=== PATIENT | female | born 1955 | race Caucasian/White ===

== ENCOUNTER 2017-05-16 15:58 | Inpatient (IN) | payer MEDICARE ==
[~2017-05-16] VITALS: Ht 165.1 cm; Wt 90.6 kg
--- NOTE | ~2017-05-16 | CT4 ---
[facility] A Service of [facility] / [facility] RADIOLOGY TEXT RESULTS PATIENT: KEN CHARLTON LOCATION: [facility] 340-01 : [birth year] UNIT #: [id number] AGE: [address]: Collette Cooper MD SEX: F ORDER DR: [id number] [facility] [address] [place], [place] [address] [id number] I MR#: [id number] Acc #: [id number] NAME: KEN CHARLTON : 1955 SEX: F STUDY DATE/TIME: 05/16/2017 17:11 UNIT: CEDOF ROOM: 88909 STUDY DESCRIPTION: CT Abd and Pelv Wo Cont Attending Physician: Shamir Michael M.D. Ordering Physician: Jesus Moore D.O. Primary Care Physician: Ivania Ford M.D. MEDICAL IMAGING REPORT This report is preliminary unless electronic signature is present EXAM CT abdomen and pelvis without contrast. HISTORY Right flank pain for [address] exam was performed with one or more of the following radiation dose reduction techniques: automatic exposure control, adjustment of mA and/or kV according to patient size, and iterative reconstruction. FINDINGS CT abdomen and pelvis was performed without contrast. CT ABDOMEN: No renal calculi. No hydronephrosis or perinephric stranding. Mildly prominent right extrarenal pelvis is incidentally noted. Cholecystectomy. Hiatal hernia repair. No hepatic mass. No biliary dilatation. The spleen, pancreas, and adrenal glands are normal. Normal caliber abdominal aorta. CT PELVIS: No bladder calculi. Normal appendix. Hysterectomy. No free fluid. No bowel dilatation. IMPRESSION 1. No acute findings in the abdomen or pelvis. 2. No urinary calculi or obstruction. 3. Postoperative changes include hiatal hernia repair, cholecystectomy and hysterectomy. Dictated by... Clyde Griffiths M.D. [facility] A Service of [facility] / [facility] RADIOLOGY TEXT RESULTS PATIENT: KEN CHARLTON LOCATION: [facility] 340-01 : 57 UNIT #: [id number] AGE: [address]: Collette Cooper MD SEX: F ORDER DR: THIS IS AN ELECTRONICALLY VERIFIED REPORT Clyde Griffiths M.D. at 05/17/2017 6:07 PM BARRY/natalio TD: 05/16/2017 23:30 JOB #: [id number] MEDICAL IMAGING REPORT Page 1 of 1 COPY
--- NOTE | ~2017-05-16 | CR63 ---
[facility] A Service of [facility] / [facility] RADIOLOGY TEXT RESULTS PATIENT: KEN CHARLTON LOCATION: [facility] 340-01 : [birth year] UNIT #: [id number] AGE: [address]: Collette Cooper MD SEX: F ORDER DR: [id number] [facility] [address] [place], [place] [address] [id number] I MR#: [id number] Acc #: [id number] NAME: KEN CHARLTON : 1955 SEX: F STUDY DATE/TIME: 05/17/2017 10:55 [facility]: [facility] STUDY DESCRIPTION: CR Chest 2 View Attending Physician: Collette Cooper M.D. Ordering Physician: Collette Cooper M.D. Primary Care Physician: Ivania Ford M.D. MEDICAL IMAGING REPORT This report is preliminary unless electronic signature is present EXAM 2 views of the chest COMPARISON Abdominal series dated August 18, 2012. HISTORY 61-year-old female with dyspnea and cough for 1 day. History of hypertension and COPD. FINDINGS/IMPRESSION There is no pleural effusion or focal airspace disease. No evidence of pneumothorax. The cardiomediastinal silhouette is within normal limits for low lung volumes. There are bilateral calcified mediastinal lymph nodes. Prior cholecystectomy. No acute radiographic abnormality in the chest. Normal heart size. Dictated by... Yonny Parker M.D. THIS IS AN ELECTRONICALLY VERIFIED REPORT Yonny Parker M.D. at 05/23/2017 9:14 PM BLM/pcl TD: 05/17/2017 15:29 JOB #: [id number] MEDICAL IMAGING REPORT Page 1 of 1 COPY
--- NOTE | ~2017-05-16 | DS ---
Unit #: [id number] #: [id number] Patient: KEN CHARLTON [id number] [address] [address] [id number] I MR#: [id number] NAME: KEN CHARLTON ROOM: 340 Age: 61 Sex: F Admission Date: 05/16/2017 : 1955 Discharge Date: Attending Physician: Collette Cooper M.D. Primary Care Physician: Ivania Ford M.D. DISCHARGE SUMMARY DISCHARGE DIAGNOSES 1. Acute pancreatitis. 2. Urinary tract infection. 3. History of pancreatitis, now recurrent. 4. History of anxiety. 5. Depression. 6. Posttraumatic stress disorder. 7. Hypertension. 8. History of chronic obstructive pulmonary disease. 9. Asthma. 10. Mediastinal lymph node on chest x-ray; needs outpatient followup. 11. History of parathyroid adenoma. 12. Osteoporosis. 13. Kidney stones. CONSULTATIONS None. PROCEDURES None. DIAGNOSTIC TESTING LAB DATA: Sodium 141, potassium 3.8, lipase 17. Liver enzymes normal. WBC 7.3, hemoglobin 14. Urine culture growing mixed growth. IMAGING: CT of the abdomen and pelvis - No acute findings. Chest x-ray, 2 views, shows mediastinal lymph nodes. ALLERGIES Iodine, banana, latex. DISCHARGE MEDICATIONS 1. ProAir 2 puffs inhalation q.4 p.r.n. shortness of breath. 2. Tylenol 1,000 mg p.o. q.4-6 p.r.n. pain. 3. Lexapro 20 daily. 4. Trazodone 200 at bedtime. 5. Zofran 4 mg p.o. q.4 p.r.n. nausea and vomiting. 6. Norvasc 5 mg p.o. daily. 7. Calcium with vitamin D 500 mg p.o. daily. HOSPITALIZATION COURSE A 61 year old admitted because of abdominal pain. Unit #: [id number] #: [id number] Patient: KEN CHARLTON Acute pancreatitis, recurrent, with history of previous pancreatitis. Etiology unclear. CAT scan negative. She was kept on clear liquid diet and IV fluids. Currently wants to eat. Patient will be started on low-fat diet. If tolerates, the patient will be discharged home. I would recommend her to follow with Dr. Hima Robin, gastroenterology, in 2 weeks' time for recurrent pancreatitis as outpatient followup. Urinary tract infection. Patient received IV antibiotics. Culture shows mixed growth. No antibiotics needed at home. Mediastinal lymph node. The patient had lymph nodes on chest x-ray done because of COPD and cough. I would recommend her to follow with her PCP for further followup and evaluation and treatment, likely with a CT. Patient understands the instructions, and she understands that she needs to follow with the PCP for the chest lymph nodes. Mostly they are reactive. DISCHARGE PLAN 1. Discharge home. 2. Follow with family physician in 1-2 weeks' time. Dictated by... Saurabh Mendoza/elijah TD: 05/18/2017 15:46 JOB #: [id number] DISCHARGE SUMMARY Page 1 of 1 X Collette Cooper MD X DISCHARGE SUMMARY
--- NOTE | ~2017-05-16 | A ---
[facility] Nutrition Therapy DATE: 05/18/17 Patient: KEN CHARLTON Physician: FLORY Address: [address] [place] [address] Room/Bed: [address] [place] [address], Zip: [place] [address] Admit Date: 05/16/17 Date of : [birth year] Height: 5 5 Weight: 199 90.6 NUTRITIONAL ASSESSMENT: REASON: Consult re: pancreatitis diet education 61 y/o female admitted for pancreatitis PMH: anxiety/depression, HTN, osteoporosis, pancreatitis, asthma, COPD, DM, diveticulitis Anthropometrics: ht: 5'5" wt: 199# (90 kg) BMI 33 Assessment: Chart reviewed, events noted. Pt seen for consult re: pancreatitis diet education. RD internal communications writer visited pt at bedside and provided written and verbal pancreatitis diet education, providing patient with several examples of low-fat foods for patient. RD internal communications writer addressed several questions from pt and will remain available if further questions arise. Intervention: 1. Diet education 2. Full liquid diet RECOMMENDATIONS: 1. Advance diet as tolerated to low-fat. Encourage compliance of diet order. 2. Re-consult RD if further diet education requested/needed RD will f/u per protocol. Respectfully, SHARON HERNANDEZ, public relations intern Chata Ricci MS, RD, LD [facility] cc: client file
--- NOTE | ~2017-05-16 | HP ---
Unit #: [id number] #: [id number] Patient: KEN CHARLTON [id number] [address] [address] [id number] I MR#: [id number] NAME: KEN CHARLTON ROOM: 340 Age: 61 Sex: F Admission Date: 05/16/2017 : 1955 Attending Physician: Collette Cooper M.D. Primary Care Physician: Ivania Ford M.D. HISTORY AND PHYSICAL CHIEF COMPLAINT Right flank pain radiate to back with nausea, cloudy urine. DISCUSSION This is a 61-year-old female, with history of pancreatitis, anxiety/depression, posttraumatic stress disorder, hypertension, chronic obstructive pulmonary disease, asthma, history of parathyroid, adenoma, osteoporosis. She presented to the emergency room with chief complaint of having right flank pain, radiate to back, she thought she has a kidney stone which is possibly passing out, she has a CT scan of the abdomen which was negative for kidney stone but on workup she was found to be lipase 183 and urine consideration for urinary tract infection, being admitted for urinary tract infection and pancreatitis. She said she has history of frequent kidney stones and paranoid adenoma. She is under process for getting surgery for parathyroid adenoma. She is going to be admitted for pancreatitis. She says she has nausea and right flank pain radiating to back, and dysuria, and similarly urine cloudy urine, and she has some cough at nighttime, diarrhea for the last three days. Denied chest pain or any other complaint. PAST MEDICAL HISTORY 1. History of anxiety/depression/posttraumatic stress disorder. 2. Hypertension. 3. History of asthma/chronic obstructive pulmonary disease. 4. History of parathyroid adenoma. 5. Osteoporosis. 6. History of pancreatitis. 7. History of kidney stones. SOCIAL HISTORY She said she quit smoking ten years ago. She used to smoke two and a half packs daily for twelve years, she says she drinks alcohol once in a blue gavin. FAMILY HISTORY Hypertension and diabetes in the family. PAST SURGICAL HISTORY 1. History of hiatal hernia repair. 2. D and C. 3. Tubal ligation. 4. Oral surgery. 5. Total hysterectomy. 6. Cholecystectomy. Unit #: [id number] #: [id number] Patient: KEN CHARLTON 7. Right wrist surgery x2. HOME MEDICATIONS Medications from home is the followin. Lexapro 20 mg daily 2. Desyrel 200 mg at bedtime 3. Amlodipine 5 mg daily 4. ProAir inhaler p.r.n. 5. Calcium with vitamin D one tablet daily REVIEW OF SYSTEMS All review of systems negative except as in history of present illness. PHYSICAL EXAMINATION GENERAL: Middle-aged female lying in the bed comfortably, currently not in any distress. She is alert, awake, and oriented x3, comfortable, not in any distress. VITAL SIGNS: Current vitals are the following, temperature 98.2, heart rate 95, respiratory rate is 18, blood pressure 176/99. HEENT EXAMINATION: Pupils equal reactive to light and accommodation. Head: Normocephalic and atraumatic. NECK: Supple. No jugular venous distention. No thyromegaly. LUNGS: Clear to auscultation bilaterally. No rhonchi. No wheezing. HEART: S1 and S2, regular rate and rhythm. ABDOMEN: Soft, nontender, and nondistended. No guarding. No rigidity. Bowel sounds are positive. EXTREMITIES: Inspection normal. No cyanosis, no clubbing, and no edema. NEUROLOGIC: She is alert and oriented x4. Cranial nerves II through XII intact grossly normal sensory and no focal neurologic deficit, power 5/5 on both sides. PSYCH: Normal mood and affect. DIAGNOSTIC STUDIES LABORATORY: Laboratory workup is following, sodium 136, potassium 3.6, chloride 105, glucose 76, BUN 11, creatinine 0.7, lipase 183. Urinalysis positive, WBC 10-25, white count 9, hemoglobin 13, hematocrit 41, platelets 220. ASSESSMENT/PLAN 1. Acute pancreatitis, start the patient on IV fluids and pain control with morphine and Zofran. 2. Urinary tract infection, start on IV Levaquin, followup urine culture. 3. History of pancreatitis. 4. History of anxiety/depression/posttraumatic stress disorder. 5. Hypertension. 6. History of asthma, chronic obstructive pulmonary disease. 7. History of parathyroid adenoma. 8. History of osteoporosis. 9. History of kidney stones. 10. DVT prophylaxis. Will place the patient on Lovenox. Dictated by Shamir Michael M.D. Unit #: [id number] #: [id number] Patient: KEN CHARLTON/winnie TD: 05/17/2017 11:46 JOB #: [id number] HISTORY AND PHYSICAL Page 1 of 1 X X HISTORY AND PHYSICAL
[~2017-05-16 15:58] MED LIST: DICLOFENAC PO; FLEXERIL10 MG PO; HYDROCODONE/APA1 T15 PO; ZOFRAN PO
[2017-05-16 16:54] LABS: URINE SOURCE CLEAN CATCH
[2017-05-16 17:03] LABS: BASOPHIL# 0.1 X10e3 (0-0.3); BASOPHIL% 0.9 % (0-2.5); EOSINOPHIL# 0.2 X10e3 (0-0.7); EOSINOPHIL% 1.6 % (0.0-7.0); HEMATOCRIT 41.6 % (35.0-45.0); HEMOGLOBIN 13.6 gm/dL (12.0-16.0); LYMPHOCYTE# 3.1 X10e3 (1.0-3.5); LYMPHOCYTE% 33.4 % (17.0-45.0); MEAN CELL VOLUME 87.4 FL (83-96); MEAN CORPUSCULAR HEMOGLOBIN 28.5 PG (28-34); MEAN CORPUSCULAR HGB CONC 32.6 g/dL (30-36); MEAN PLATELET VOLUME 8.8 FL (6.5-11.5); MONOCYTE# 0.8 X10e3 (0-1.0); MONOCYTE% 8.8 % (3.0-12.0); NEUTROPHIL# 5.2 X10e3 (1.5-7.1); NEUTROPHIL% 55.3 % (40-75); PLATELET COUNT 220 X10e3 (140-420); RED BLOOD COUNT 4.76 X10e (3.90-5.30); RED CELL DISTRIBUTION WIDTH 13.4 % (11.0-15.5); URINE APPEARANCE CLEAR; URINE BILIRUBIN NEG (NEG); URINE BLOOD 3+ (NEG); URINE COLOR YELLOW; URINE GLUCOSE NEG (NEG); URINE KETONE NEG (NEG); URINE LEUKOCYTE ESTERASE 1+ (NEG); URINE NITRATE NEG (NEG); URINE PH 5.5 (5-8); URINE PROTEIN 2+ (NEG); URINE SPECIFIC GRAVITY 1.009 (1.003-1.035); URINE UROBILINOGEN 0.2 MG/DL (NEG); WHITE BLOOD COUNT 9.4 X10e3 (4.0-10.5)
[2017-05-16 17:07] LABS: CULTURE INDICATED? YES; DIFF IND NO; URBCS1 AUWI 25-50 /[HPF] (0-2); URINE BACTERIA AUWI NEG (NEGATIVE); URINE SQUAMOUS EPITHELIAL CELL OCC /[HPF]
[2017-05-16 17:20] LABS: ALBUMIN SERUM 4.1 g/dL (3.5-5.0); BILIRUBIN, DIRECT 0.1 mg/dL (0.0-0.2); BILIRUBIN,INDIRECT 0.4 mg/dL (0.0-0.9); BILIRUBIN,TOTAL 0.5 mg/dL (0.2-2.0); BUN/CREATININE RATIO 15.71; CREATININE SERUM 0.7 mg/dL (0.6-1.4); GLOM FILT RATE Estimated 94.2 mL/min (>60); POTASSIUM 3.6 mmol/L (3.5-5.1); PROTEIN TOTAL SERUM 7.3 g/dL (6.0-8.3)
[2017-05-16] MEDS ORDERED: LEXAPRO20 MG PO (20:08)
[2017-05-16] MEDS ORDERED: DESYREL100 MG PO (20:10)
[2017-05-16] MEDS ORDERED: AMLODIPINE BESYL5 MG PO (20:10)
[2017-05-16] MEDS ORDERED: PROAIR RESPICL90 MCG INH (20:11)
[2017-05-16] MEDS ORDERED: CALCIUM 600 +1 EAC7 PO (20:26)
[2017-05-17 07:31] LABS: BASOPHIL# 0.1 X10e3 (0-0.3); BASOPHIL% 1.3 % (0-2.5); EOSINOPHIL# 0.2 X10e3 (0-0.7); EOSINOPHIL% 4.5 % (0.0-7.0); HEMATOCRIT 39.9 % (35.0-45.0); HEMOGLOBIN 12.9 gm/dL (12.0-16.0); LYMPHOCYTE# 2.2 X10e3 (1.0-3.5); LYMPHOCYTE% 46.3 % (17.0-45.0); MEAN CELL VOLUME 87.6 FL (83-96); MEAN CORPUSCULAR HEMOGLOBIN 28.4 PG (28-34); MEAN CORPUSCULAR HGB CONC 32.4 g/dL (30-36); MEAN PLATELET VOLUME 9.1 FL (6.5-11.5); MONOCYTE# 0.5 X10e3 (0-1.0); MONOCYTE% 10.8 % (3.0-12.0); NEUTROPHIL# 1.7 X10e3 (1.5-7.1); NEUTROPHIL% 37.1 % (40-75); PLATELET COUNT 192 X10e3 (140-420); RED BLOOD COUNT 4.55 X10e (3.90-5.30); RED CELL DISTRIBUTION WIDTH 13.2 % (11.0-15.5); WHITE BLOOD COUNT 4.7 X10e3 (4.0-10.5)
[2017-05-17 07:37] LABS: DIFF IND NO
[2017-05-17 08:12] LABS: ALBUMIN SERUM 3.4 g/dL (3.5-5.0); BILIRUBIN,TOTAL 0.6 mg/dL (0.2-2.0); CALCIUM SERUM 8.7 mg/dL (8.4-10.2); CREATININE SERUM 0.8 mg/dL (0.6-1.4); GLOM FILT RATE Estimated 80.2 mL/min (>60); POTASSIUM 3.7 mmol/L (3.5-5.1); PROTEIN TOTAL SERUM 6.2 g/dL (6.0-8.3)
[2017-05-17] MEDS ORDERED: ACETAMINOPHEN PO (12:18)
[2017-05-18 06:19] LABS: HEMATOCRIT 43.1 % (35.0-45.0); MEAN CORPUSCULAR HEMOGLOBIN 28.6 PG (28-34); MEAN CORPUSCULAR HGB CONC 32.5 g/dL (30-36); MEAN PLATELET VOLUME 8.8 FL (6.5-11.5); RED BLOOD COUNT 4.9 X10e (3.90-5.30); RED CELL DISTRIBUTION WIDTH 13.3 % (11.0-15.5)
[2017-05-18 06:21] LABS: WHITE BLOOD COUNT 7.3 X10e3 (4.0-10.5)
[2017-05-18 06:52] LABS: ALBUMIN SERUM 3.8 g/dL (3.5-5.0); BILIRUBIN,TOTAL 0.5 mg/dL (0.2-2.0); BUN/CREATININE RATIO 7.5; CALCIUM SERUM 8.8 mg/dL (8.4-10.2); CREATININE SERUM 0.8 mg/dL (0.6-1.4); GLOM FILT RATE Estimated 80.2 mL/min (>60); POTASSIUM 3.8 mmol/L (3.5-5.1)
[2017-05-18] MEDS ORDERED: ZOFRAN PO (13:50)
[2017-05-18] MEDS ORDERED: OS-CAL 500 + D500 MG PO (13:51)
== END 2017-05-18 16:35 | disposition home or self-care (01) | DRG 439 ==
LOC: CED 15:58 → CEDOF 21:00 → CED 21:18 → CEDOF 05-17 06:36 → C3A PCU 05-17 09:28 → CEDOF 05-17 09:28 → C3A PCU 05-18 16:35
PROVIDERS: Emergency Medicine; Internal Medicine
DX: K85.90 Acute pancreatitis without necrosis or infection, unspecified (principal); N39.0 Urinary tract infection, site not specified; I10 Essential (primary) hypertension; K86.1 Other chronic pancreatitis; F41.9 Anxiety disorder, unspecified; F32.9 Major depressive disorder, single episode, unspecified; F43.10 Post-traumatic stress disorder, unspecified; J44.9 Chronic obstructive pulmonary disease, unspecified; M81.0 Age-related osteoporosis without current pathological fracture; Z87.442 Personal history of urinary calculi; Z90.49 Acquired absence of other specified parts of digestive tract; Z90.710 Acquired absence of both cervix and uterus; Z83.3 Family history of diabetes mellitus; Z82.49 Family history of ischemic heart disease and other diseases of the circulatory system
CPT/HCPCS: 36415; 71020; 74176; 80048; 80053; 80076; 81003; 82150; 82947; 83690; 85025; 85027; 87086; 94640; 94760; 96374; 96375; 99285; C9113; J1650; J1885; J1956; J2405